=== PATIENT | male | born 1940 | race African-American/Black ===

== ENCOUNTER 2024-05-28 09:16 | Observation (INO) | payer MEDICARE ==
[2024-05-28] VITALS (17 sets, daily range): BP systolic 125–188; BP diastolic 67–90
[~2024-05-28] VITALS: Ht 180.3 cm; Wt 50.2 kg
[2024-05-28] MEDS ORDERED: ASPIRIN 81 MG/TAB PO ONE (09:20)
[2024-05-28 09:43] LABS: BASO% 0.8 % (0-3); EOS% 3.3 % (0-8); HEMATOCRIT 39.4 % (39.0-50.0); HEMOGLOBIN 12.3 g/dl (14.0-18.0); IMMATURE GRANULOCYTES 0.2 % (0.0-5.0); LYMPH% 16.6 % (15-41); MEAN CELL VOLUME 102.6 fL CALC (80.0-100.0); MEAN CORPUSCULAR HGB CONC 31.2 g/dL CAL (32.0-36.0); MONO% 7.5 % (2-13); NEUT# 4.58 thou/uL (1.82-7.42); NEUT% 71.6 % (42-76); RED BLOOD COUNT 3.84 mill/uL (4.70-6.10); RED CELL DISTRI WIDTH 13.9 % (11.5-15.5)
[2024-05-28 09:53] LABS: ALBUMIN 4.3 g/dL (3.2-5.0); ALKALINE PHOSPHATASE 96 u/l (38-126); ANION GAP 9 (6-22 (CALC)); BILIRUBIN, TOTAL 0.8 mg/dL (0.2-1.3); BUN 11 mg/dL (8-23); BUN/CREATININE RATIO 12 (12-20 (CALC)); CARBON DIOXIDE 30 mmol/l (22-30); CHLORIDE 105 mmol/l (95-108); CREATININE 0.9 mg/dL (0.7-1.3); ESTIMATED GFR 85 ML/MIN (>=90 (CALC)); POTASSIUM 4.3 mmol/l (3.5-5.1); SGOT/AST 39 u/l (19-48); SODIUM 139 mmol/l (137-146); TOTAL PROTEIN 7.6 g/dL (6.3-8.2)
[2024-05-28] MEDS ORDERED: AMLODIPINE BESY10 MG PO (10:36)
[2024-05-28] MEDS ORDERED: VERAPAMIL HCL80 MG PO (10:37)
[2024-05-28] MEDS ORDERED: SODIUM CHLORIDE 0.9% 1,000 ML IV PRN (13:10)
[2024-05-28] MEDS ORDERED: ACETAMINOPHEN 325 MG/TAB PO PRN (13:10)
[2024-05-28] MEDS ORDERED: MAGNESIUM HYDROXIDE 30 ML UDC PO PRN (13:10)
[2024-05-28] MEDS ORDERED: hydrALAZINE HCL 20 MG/ML VIAL(1 ML) IV PRN (13:15)
[2024-05-28] MEDS ORDERED: BISACODYL 10 MG SUPP RE PRN (14:00)
[2024-05-28] MEDS ORDERED: amLODIPine BESYLATE 5 MG/TAB PO SCH (14:00)
[2024-05-28] MEDS ORDERED: LACTULOSE 20 GM/30 ML UDC PO SCH (14:00)
[2024-05-28] MEDS ORDERED: HALOPERIDOL LACTATE 5 MG/ML SDV IV ONE (15:20)
[2024-05-28] MEDS ORDERED: ENOXAPARIN SODIUM 40 MG/0.4 ML SYR SC SCH (21:00)
[2024-05-29] VITALS: BP 148/76
[2024-05-29 00:07] VITALS: BP 148/76
[2024-05-29 04:00] VITALS: BP 155/72
[2024-05-29 04:11] VITALS: BP 155/72
[2024-05-29 05:55] LABS: BASO% 0.7 % (0-3); EOS% 0.8 % (0-8); HEMATOCRIT 37.7 % (39.0-50.0); HEMOGLOBIN 12.4 g/dl (14.0-18.0); IMMATURE GRANULOCYTES 0.2 % (0.0-5.0); LYMPH% 10.3 % (15-41); MEAN CELL VOLUME 100.8 fL CALC (80.0-100.0); MEAN CORPUSCULAR HGB 33.2 pG CALC (26.0-32.0); MEAN CORPUSCULAR HGB CONC 32.9 g/dL CAL (32.0-36.0); MONO% 6.1 % (2-13); NEUT# 4.84 thou/uL (1.82-7.42); NEUT% 81.9 % (42-76); RED BLOOD COUNT 3.74 mill/uL (4.70-6.10); RED CELL DISTRI WIDTH 13.8 % (11.5-15.5)
[2024-05-29 06:04] LABS: BILIRUBIN, TOTAL 0.5 mg/dL (0.2-1.3); CHOLESTEROL HDL RATIO 2.7 (<4.4 (CALC)); CREATININE 1.1 mg/dL (0.7-1.3); MAGNESIUM 2.3 mg/dL (1.6-2.3); POTASSIUM 4.4 mmol/l (3.5-5.1)
[2024-05-29] MEDS ORDERED: ASPIRIN EC 81 MG/TAB PO SCH (09:00)
[2024-05-29] MEDS ORDERED: ASPIRIN 81 LOW81 MG PO (10:10)
[2024-05-29] MEDS ORDERED: ATORVASTATIN CA40 MG PO (10:12)
[2024-05-29 10:22] VITALS: BP 137/78
[2024-05-29 10:49] VITALS: BP 137/78
[2024-05-29] MEDS ORDERED: QUEtiapine FUMERATE 25 MG/TAB PO SCH (21:00)
== END 2024-05-29 13:50 | disposition home or self-care (01) ==
LOC: ED 09:16 → ED-I 12:20 → ED 12:51 → MS2 12:52
PROVIDERS: Family Medicine; Nurse Practitioner Family; ADMIT Internal Medicine; ATTEND Internal Medicine
DX: R07.89 Other chest pain (principal); K56.41 Fecal impaction; I10 Essential (primary) hypertension; F03.90 Unspecified dementia, unspecified severity, without behavioral disturbance, psychotic disturbance, mood disturbance, and anxiety; J44.9 Chronic obstructive pulmonary disease, unspecified
CPT/HCPCS: J1630; J1650; Q9967